=== PATIENT | male | born 1995 | race Hispanic/Latino ===

== ENCOUNTER 2021-02-01 15:55 | Inpatient (IN) | payer OTHER ==
[~2021-02-01 15:55] MED LIST: Fentanyl 100 MCG/2 ML VIAL ONE; Iopamidol-370 76% 500 ML 1 ML ONE; Norepinephrine 8 MG/0.9% NS 0 ML ONE
[2021-02-01] MEDS ORDERED: Propofol 1,000 MG/100 ML VIAL IV ONE ×2 (16:08→19:28)
[2021-02-01] MEDS ORDERED: Ondansetron PF 4 MG/2 ML Vial ONE (16:25)
[2021-02-01] MEDS ORDERED: Morphine 4 MG/ML VIAL ONE (16:27)
[2021-02-01] MEDS ORDERED: Fentanyl 100 MCG/2 ML VIAL ONE (16:31)
[2021-02-01 16:39] LABS: #Basophils 0.1 thou/uL (0.0-0.2); #Lymphocytes 3.9 thou/uL (1.20-3.40); #Monocytes 0.9 thou/uL (0.11-0.59); #Neutrophils 4.4 thou/uL (1.40-6.50); %Eosinophils 0.5 % (0.0-10.0); %Lymphocytes 41.5 % (21.0-51.0); %Monocytes 9.9 % (0.0-10.0); %Neutrophils 47.1 % (42.0-75.0); Hemoglobin 14.7 g/dL (14.0-18.0); Mean Corpuscular HGB CONC 35.8 g/dL (32.0-36.0); Mean Corpuscular Hemoglobin 30.7 pg (27.0-31.0); Mean Corpuscular Volume 85.9 fL (78.0-98.0); Mean Platelet Volume 6.7 fL (7.4-10.4); Platelet Count 255 thou/uL (130-400); RBC Distribution Width 11.6 % (11.5-14.5); Red Blood Cell (RBC) Count 4.77 mill/uL (4.70-6.10); White Blood Cell (WBC) Count 9.4 thou/uL (4.8-10.8)
[2021-02-01] MEDS ORDERED: Rocuronium Bromide 10 MG/ML (10ML VIAL) ONE (16:43)
[2021-02-01 16:44] LABS: PTT 26.5 sec (22.9-36.1); Prothrombin Time 13.5 sec (12.0-14.7)
[2021-02-01 16:51] LABS: ALT (SGPT) 37 U/L (8-55); AST (SGOT) 29 U/L (5-34); Albumin 4.5 g/dL (3.5-5.0); Alkaline Phosphatase 60 U/L (40-110); Anion Gap 14 mmol/L (10-20); BUN (Urea Nitrogen) 16 mg/dL (8.9-20.6); Bilirubin, Total 0.4 mg/dL (0.2-1.2); Calc. Creatinine Clearance 0 mL/min (70-130); Calcium 8.7 mg/dL (7.8-10.44); Carbon Dioxide 25 mmol/L (22-29); Chloride 104 mmol/L (98-107); Glucose 116 mg/dL (70-105); Lipase 45 U/L (8-78); Potassium 3.2 mmol/L (3.5-5.1); Protein, Total 7.5 g/dL (6.0-8.3); Sodium 140 mmol/L (136-145)
[2021-02-01] MEDS: Fentanyl CADD 100 ML IV SCH (17:10)
[2021-02-01 17:11] LABS: Actual Bicarbonate (HCO3a) 20.5 mEq/L (22-28); Base Excess (BEa) -3.1 mEq/L (-2.0 to +3.0); CO2 Tension 32.8 mmHg (35.0-45.0); Calcium, Ionized (arterial) 1.08 mmol/L (1.12-1.30); Carboxyhemoglobin (COHb) 0.4 gm% (0.0-3.0); O2 Tension (PaO2), arterial 129.1 mmHg (80.0-100.0); Potassium - ABG Lab 3.13 mmol/L (3.70-5.30); pH, Arterial 7.41 (7.35-7.45)
[2021-02-01 17:12] LABS: Puncture Site RRA
[2021-02-01] MEDS ORDERED: Midazolam HCl 2 mg/2 ml Vial ONE (17:27)
[2021-02-01] MEDS ORDERED: Ondansetron ODT 4 MG TAB PO PRN (18:17)
[2021-02-01] MEDS ORDERED: Dextrose 5% in Water 1,000 ML IV PRN (18:17)
[2021-02-01] MEDS ORDERED: Promethazine HCl 25 MG/ML VIAL IM PRN ×2 (18:17)
[2021-02-01] MEDS ORDERED: Dextrose 50% Abboject 50 ML SYRINGE SLOW IVP PRN (18:17)
[2021-02-01] MEDS ORDERED: hydrALAZINE 20 MG/ML VIAL SLOW IVP PRN (18:17)
[2021-02-01] MEDS ORDERED: Midazolam HCl 2 mg/2 ml Vial SLOW IVP SCH (18:45)
[2021-02-01] MEDS: Sodium Chloride 0.9% 1,000 ML IV SCH (19:23)
[2021-02-01] MEDS ORDERED: Morphine 2 MG/ML VIAL SLOW IVP PRN (19:30)
[2021-02-01] MEDS ORDERED: Lorazepam 2 MG/ML VIAL SLOW IVP PRN (19:30)
[2021-02-01] MEDS ORDERED: Propofol BOLUS 1,000 MG/100 ML VIAL IV PRN (19:30)
[2021-02-01] MEDS ORDERED: DISCONTINUE PREVIOUS NARCOTIC PAIN MEDICATIONS AND BENZODIAZEPINES FS SCH (19:30)
[2021-02-01] MEDS ORDERED: Fentanyl BOLUS 250 ML IVPB PRN (19:30)
[2021-02-01 19:48] LABS: Lactic Acid 3.7 mmol/L (0.5-2.2)
[2021-02-01] MEDS ORDERED: Famotidine 20 MG TAB PO SCH (21:00)
[2021-02-01] MEDS ORDERED: Lidocaine 1% w/Epinephrine 1:100K 20 ML VIAL FS SCH (21:15)
[2021-02-01] MEDS ORDERED: CEFAZOLIN 1 GM VIAL SLOW IVP SCH (22:00)
[2021-02-01] MEDS ORDERED: Bacitracin 1 PK TOP SCH (22:30)
[2021-02-01] MEDS: Propofol 1,000 MG/100 ML VIAL IV PRN (22:47)
[2021-02-01] MEDS ORDERED: CEFAZOLIN 1 GM in Sodium Chloride 0.9% 100 ML IVPB SCH (23:59)
[2021-02-02] MEDS ORDERED: Acetaminophen 650 MG/20.3 ML UDCUP PO SCH (00:30)
[2021-02-02] MEDS: Sodium Chloride 0.9% 1,000 ML IV SCH ×3 (01:07→20:56)
[2021-02-02] MEDS ORDERED: Fentanyl CADD 100 ML ONE ×3 (01:19→20:52)
[2021-02-02 03:49] LABS: #Lymphocytes 1.3 thou/uL (1.20-3.40); #Monocytes 0.9 thou/uL (0.11-0.59); #Neutrophils 8.1 thou/uL (1.40-6.50); %Basophils 0.1 % (0.0-1.0); %Eosinophils 0.1 % (0.0-10.0); %Lymphocytes 12.8 % (21.0-51.0); %Neutrophils 77.9 % (42.0-75.0); Hemoglobin 12.3 g/dL (14.0-18.0); Mean Corpuscular HGB CONC 35.2 g/dL (32.0-36.0); Mean Corpuscular Hemoglobin 30.1 pg (27.0-31.0); Mean Corpuscular Volume 85.5 fL (78.0-98.0); Mean Platelet Volume 6.9 fL (7.4-10.4); Platelet Count 206 thou/uL (130-400); RBC Distribution Width 11.6 % (11.5-14.5); Red Blood Cell (RBC) Count 4.09 mill/uL (4.70-6.10); White Blood Cell (WBC) Count 10.4 thou/uL (4.8-10.8)
[2021-02-02 03:56] LABS: Lactic Acid 2.5 mmol/L (0.5-2.2)
[2021-02-02 04:03] LABS: Anion Gap 15 mmol/L (10-20); BUN (Urea Nitrogen) 15 mg/dL (8.9-20.6); Calc. Creatinine Clearance 166 mL/min (70-130); Calcium 8.1 mg/dL (7.8-10.44); Carbon Dioxide 20 mmol/L (22-29); Chloride 105 mmol/L (98-107); Glucose 112 mg/dL (70-105); Potassium 3.2 mmol/L (3.5-5.1); Sodium 137 mmol/L (136-145)
[2021-02-02] MEDS: Propofol 1,000 MG/100 ML VIAL IV PRN ×4 (04:45→16:31)
[2021-02-02 07:00] LABS: Actual Bicarbonate (HCO3a) 20.8 mEq/L (22-28); Base Excess (BEa) -0.9 mEq/L (-2.0 to +3.0); CO2 Tension 26.6 mmHg (35.0-45.0); Calcium, Ionized (arterial) 1.09 mmol/L (1.12-1.30); Carboxyhemoglobin (COHb) 0.4 gm% (0.0-3.0); Hemoglobin (Hb) 12.3 g/dL (14.0-18.0); O2 Tension (PaO2), arterial 137.5 mmHg (80.0-100.0); Potassium - ABG Lab 3.24 mmol/L (3.70-5.30); pH, Arterial 7.51 (7.35-7.45)
[2021-02-02 07:36] LABS: Puncture Site RRA
[2021-02-02] MEDS: Bacitracin 1 PK TOP SCH ×2 (09:07→20:56)
[2021-02-02] MEDS: Famotidine/PF 20 mg/2ml Vial SLOW IVP SCH ×2 (09:08→20:56)
[2021-02-02] MEDS: cefTRIAXone\\ROCEPHIN 2 GM in Sodium Chloride 0.9% 100 ML IVPB SCH (09:08)
[2021-02-02 10:08] LABS: Phosphorus 3.2 mg/dL (2.3-4.7)
[2021-02-02 12:44] VITALS: BMI 29.0
[2021-02-02] MEDS ORDERED: Potassium Chloride 40 MEQ in Premix Bag 1 BAG IVPB SCH (14:45)
[2021-02-02] MEDS: Fentanyl CADD 100 ML IV SCH (21:53)
[2021-02-03] MEDS: Propofol 1,000 MG/100 ML VIAL IV PRN ×2 (01:43→05:41)
[2021-02-03 03:58] LABS: #Eosinphils 0.1 thou/uL (0.0-0.7); #Lymphocytes 2.1 thou/uL (1.20-3.40); #Monocytes 0.9 thou/uL (0.11-0.59); %Basophils 0.3 % (0.0-1.0); %Eosinophils 0.7 % (0.0-10.0); %Lymphocytes 26.1 % (21.0-51.0); %Monocytes 10.9 % (0.0-10.0); %Neutrophils 61.9 % (42.0-75.0); Hemoglobin 11.2 g/dL (14.0-18.0); Mean Corpuscular Hemoglobin 29.4 pg (27.0-31.0); Mean Corpuscular Volume 86.6 fL (78.0-98.0); Mean Platelet Volume 7.2 fL (7.4-10.4); Platelet Count 168 thou/uL (130-400); RBC Distribution Width 11.3 % (11.5-14.5)
[2021-02-03] MEDS: Sodium Chloride 0.9% 1,000 ML IV SCH ×3 (04:16→20:51)
[2021-02-03 04:30] LABS: Anion Gap 13 mmol/L (10-20); BUN (Urea Nitrogen) 9 mg/dL (8.9-20.6); Calc. Creatinine Clearance 188 mL/min (70-130); Calcium 7.8 mg/dL (7.8-10.44); Carbon Dioxide 23 mmol/L (22-29); Chloride 105 mmol/L (98-107); Glucose 96 mg/dL (70-105); Magnesium 1.8 mg/dL (1.6-2.6); Potassium 3.2 mmol/L (3.5-5.1); Sodium 138 mmol/L (136-145)
[2021-02-03] MEDS: Ondansetron PF 4 MG/2 ML Vial IVP PRN ×2 (07:40→15:46)
[2021-02-03] MEDS: Famotidine/PF 20 mg/2ml Vial SLOW IVP SCH ×2 (08:47→20:52)
[2021-02-03] MEDS: Bacitracin 1 PK TOP SCH ×2 (08:48→20:52)
[2021-02-03] MEDS: cefTRIAXone\\ROCEPHIN 2 GM in Sodium Chloride 0.9% 100 ML IVPB SCH (08:48)
[2021-02-03] MEDS ORDERED: Electrolyte Replacement Protocol 1 EACH FS PRN (09:43)
[2021-02-03] MEDS ORDERED: Potassium Chloride 40 MEQ in Sodium Chloride 0.9% 250 ML 250 ML IVPB SCH (10:00)
[2021-02-03] MEDS ORDERED: Magnesium 2 GM/50 ML 2 GM in Premix Bag 1 BAG IVPB SCH (10:30)
[2021-02-03] MEDS ORDERED: Ibuprofen 800 MG TAB PO SCH ×2 (11:30→14:00)
[2021-02-03] MEDS: traMADol HCl 50 MG TAB PO SCH ×3 (11:43→21:35)
[2021-02-03] MEDS: Acetaminophen 500 MG TAB PO SCH ×2 (11:43→18:05)
[2021-02-03] MEDS: Ibuprofen 200 MG TAB PO SCH ×2 (13:54→21:35)
[2021-02-03] MEDS: Morphine 2 MG/ML VIAL SLOW IVP PRN ×2 (15:39→21:21)
[2021-02-03] MEDS: traMADol HCl 50 MG TAB PO PRN (21:35)
[2021-02-04] MEDS: traMADol HCl 50 MG TAB PO SCH ×3 (00:21→11:20)
[2021-02-04] MEDS: Acetaminophen 500 MG TAB PO SCH ×3 (00:21→11:18)
[2021-02-04] MEDS: Cyclobenzaprine 10 MG TAB PO PRN ×2 (02:18→14:42)
[2021-02-04] MEDS: traMADol HCl 50 MG TAB PO PRN ×3 (03:54→13:33)
[2021-02-04] MEDS ORDERED: Ketorolac Tromethamine 30 MG/ML VIAL IVP SCH ×2 (04:45→12:45)
[2021-02-04] MEDS: Ibuprofen 200 MG TAB PO SCH ×2 (06:22→14:00)
[2021-02-04 08:39] VITALS: BP 122/80; TEMP 98.4
[2021-02-04] MEDS: cefTRIAXone\\ROCEPHIN 2 GM in Sodium Chloride 0.9% 100 ML IVPB SCH (09:26)
[2021-02-04] MEDS: Famotidine/PF 20 mg/2ml Vial SLOW IVP SCH (09:26)
[2021-02-04] MEDS: Bacitracin 1 PK TOP SCH (09:29)
[2021-02-04] MEDS: Sodium Chloride 0.9% 1,000 ML IV SCH (09:32)
[2021-02-04] MEDS: Ondansetron PF 4 MG/2 ML Vial IVP PRN (12:59)
== END 2021-02-04 16:01 | disposition home or self-care (01) | DRG 85 ==
LOC: ERS 15:55 → CCU 16:37 → EEVIPCON 16:37 → SURG A 02-03 14:09
PROVIDERS: ADMIT Surgery; ATTEND Surgery
PROC: 5A1945Z Respiratory Ventilation, 24-96 Consecutive Hours (ICD-10-PCS; principal; 2021-02-01)
PROC: 0BH17EZ Insertion of Endotracheal Airway into Trachea, Via Natural or Artificial Opening (ICD-10-PCS; 2021-02-01)
PROC: 08QPXZZ Repair Left Upper Eyelid, External Approach (ICD-10-PCS; 2021-02-01)
PROC: 3E033XZ Introduction of Vasopressor into Peripheral Vein, Percutaneous Approach (ICD-10-PCS; 2021-02-01)
PROC: 0D9670Z Drainage of Stomach with Drainage Device, Via Natural or Artificial Opening (ICD-10-PCS; 2021-02-01)
DX: S02.842B Fracture of lateral orbital wall, left side, initial encounter for open fracture (principal); S06.6X0A Traumatic subarachnoid hemorrhage without loss of consciousness, initial encounter; J96.00 Acute respiratory failure, unspecified whether with hypoxia or hypercapnia; S06.1X0A Traumatic cerebral edema without loss of consciousness, initial encounter; S02.40DB Maxillary fracture, left side, initial encounter for open fracture; S02.832A Fracture of medial orbital wall, left side, initial encounter for closed fracture; G93.89 Other specified disorders of brain; Y35.091A Legal intervention involving other firearm discharge, law enforcement official injured, initial encounter; R40.2362 Coma scale, best motor response, obeys commands, at arrival to emergency department; R40.2142 Coma scale, eyes open, spontaneous, at arrival to emergency department; R40.2252 Coma scale, best verbal response, oriented, at arrival to emergency department; Z78.1 Physical restraint status; S02.5XXA Fracture of tooth (traumatic), initial encounter for closed fracture; S02.32XB Fracture of orbital floor, left side, initial encounter for open fracture; S02.832B Fracture of medial orbital wall, left side, initial encounter for open fracture; Z23 Encounter for immunization
CPT/HCPCS: 31500; 36415; 36416; 36600; 70450; 70486; 70496; 70498; 71045; 76377; 80048; 80053; 82805; 83605; 83690; 83735; 84100; 85025; 85610; 85730; 86850; 86900; 86901; 90471; 94002; 94003; 94760; 96365; 96374; 96375; G0390; J0690; J0696; J1885; J2060; J2250; J2270; J2405; J2704; J3010; J3475; J3480; J3490; J7050; Q9967; S0028

== ENCOUNTER 2021-12-05 20:21 | Emergency (ER) | payer OTHER ==
[~2021-12-05 20:21] MED LIST changes: -Fentanyl 100 MCG/2 ML VIAL ONE; +Iopamidol 370 76% 100 ML VIAL ONE; -Iopamidol-370 76% 500 ML 1 ML ONE; -Norepinephrine 8 MG/0.9% NS 0 ML ONE
[2021-12-05 21:21] LABS: #Basophils 0.1 thou/uL (0.0-0.2); #Lymphocytes 2.2 thou/uL (1.20-3.40); #Monocytes 0.9 thou/uL (0.11-0.59); #Neutrophils 8.5 thou/uL (1.40-6.50); %Basophils 0.5 % (0.0-1.0); %Eosinophils 0.4 % (0.0-10.0); %Lymphocytes 18.9 % (21.0-51.0); %Monocytes 7.8 % (0.0-10.0); %Neutrophils 72.4 % (42.0-75.0); Hemoglobin 14.8 g/dL (14.0-18.0); Mean Corpuscular HGB CONC 33.4 g/dL (32.0-36.0); Mean Corpuscular Hemoglobin 28.7 pg (27.0-31.0); Mean Platelet Volume 6.4 fL (7.4-10.4); Platelet Count 276 thou/uL (130-400); RBC Distribution Width 11.7 % (11.5-14.5); Red Blood Cell (RBC) Count 5.17 mill/uL (4.70-6.10); White Blood Cell (WBC) Count 11.7 thou/uL (4.8-10.8)
[2021-12-05 21:40] LABS: ALT (SGPT) 69 U/L (8-55); AST (SGOT) 35 U/L (5-34); Albumin 4.8 g/dL (3.5-5.0); Alkaline Phosphatase 69 U/L (40-110); Anion Gap 13 mmol/L (10-20); BUN (Urea Nitrogen) 15 mg/dL (8.9-20.6); Bilirubin, Total 0.6 mg/dL (0.2-1.2); Calc. Creatinine Clearance 0 mL/min (70-130); Calcium 9.8 mg/dL (7.8-10.44); Carbon Dioxide 28 mmol/L (22-29); Chloride 100 mmol/L (98-107); Globulin 3.7 g/dL (2.4-3.5); Glucose 106 mg/dL (70-105); Potassium 3.6 mmol/L (3.5-5.1); Protein, Total 8.5 g/dL (6.0-8.3); Sodium 137 mmol/L (136-145)
[2021-12-05] MEDS ORDERED: Dexamethasone 4 mg/ml Vial ONE (21:56)
[2021-12-05] MEDS ORDERED: cefTRIAXone\\ROCEPHIN 1 GM VIAL ONE (23:28)
== END 2021-12-06 00:03 | disposition home or self-care (01) ==
LOC: ERS 20:21
DX: J02.9 Acute pharyngitis, unspecified (principal)
CPT/HCPCS: 36415; 70491; 80053; 85025; 96365; 96375; J0696; J1100; Q9967